=== PATIENT | male | born 1985 | race Caucasian/White ===

== ENCOUNTER 2016-08-11 16:15 | Emergency (ER) | payer OTHER ==
[~2016-08-11] VITALS: Ht 177.8 cm; Wt 96.9 kg
[~2016-08-11 16:15] MED LIST: ATV/1 PO; DARU1TAB5 PO; DPKSR250 PO; DPKSR500 PO; RITO100T PO; TRVHP PO
[2016-08-11 16:19] VITALS: BP 151/92; PULSE 100; TEMP 36.6; O2SAT 96; Ht 177.8 cm; Wt 96.9 kg
[2016-08-11] MEDS ORDERED: DIPHTHERIA/TETANUS/PERTUSSIS 0.5 ML SYR/VIAL IM. ONE (17:00)
[2016-08-11] MEDS ORDERED: XYLOCAINE 1%/SOD BICARB 20 ML VIAL INFIL ONE (17:00)
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
[2016-08-11] MEDS ORDERED: CEPH500C2 PO (18:03)
== END 2016-08-11 18:14 | disposition home or self-care (01) ==
LOC: C.EDB 16:18 → C.EDD 18:14
DX: S01.21XA Laceration without foreign body of nose, initial encounter (principal); S02.2XXB Fracture of nasal bones, initial encounter for open fracture; W22.8XXA Striking against or struck by other objects, initial encounter; Z23 Encounter for immunization; B20 Human immunodeficiency virus [HIV] disease; K21.9 Gastro-esophageal reflux disease without esophagitis; F41.9 Anxiety disorder, unspecified; F32.9 Major depressive disorder, single episode, unspecified; F17.200 Nicotine dependence, unspecified, uncomplicated; Z79.899 Other long term (current) drug therapy; Z88.0 Allergy status to penicillin; Z88.1 Allergy status to other antibiotic agents